=== PATIENT | female | born 1960 | race Two or more races ===

== ENCOUNTER 2022-07-04 07:38 | Emergency (ER) | payer OTHER ==
[~2022-07-04] VITALS: Ht 165.1 cm; Wt 61.2 kg
[2022-07-04] MEDS ORDERED: CIPRO500 MG PO (14:44)
== END 2022-07-04 14:59 | disposition home or self-care (01) ==
LOC: ER 07:38
DX: K57.90 Diverticulosis of intestine, part unspecified, without perforation or abscess without bleeding (principal)